=== PATIENT | male | born 1945 | race Caucasian/White ===

== ENCOUNTER 2017-10-11 00:31 | Emergency (ER) | payer OTHER ==
[~2017-10-11] VITALS: Ht 193 cm; Wt 141.8 kg
[~2017-10-11 00:31] MED LIST: ACET-1311 PO; ASPI81TA28 PO; ATOR-26 PO; FERR1TAB13 PO; METO25TA3 PO; MULT-506 PO; NTRGSL/4 UT; OXYC1TAB3 PO; WARF5TAB7 PO
[2017-10-11 00:35] VITALS: Ht 193 cm; Wt 141.8 kg
[2017-10-11] MEDS ORDERED: WARF-237 PO (01:12)
[2017-10-11] MEDS ORDERED: LPT/40 PO (01:12)
[2017-10-11] MEDS ORDERED: CMD10 PO (01:12)
[2017-10-11] MEDS ORDERED: CEFTRIAXONE SOD INJ 1 GM ADDVIAL IV STA (01:54)
[2017-10-11 02:15] LABS: BASO % 0.3 %; BASO ABS # 0.02 K/uL (0-0.2); EOS % 4.1 %; EOS ABS # 0.29 K/uL (0-0.5); HEMATOCRIT 41.6 % (42-52); HEMOGLOBIN 13.8 g/dL (14.0-18.0); IG# 0.02 K/uL (0.00-0.02); LYMPH % 18.4 %; LYMPH ABS # 1.29 K/uL (1.2-3.4); MEAN CELL VOLUME 95.2 fL (80-100); MEAN CORPUSCULAR HEMOGLOBIN 31.6 pg (25-34); MEAN CORPUSCULAR HGB CONC 33.2 g/dl (32-36); MEAN PLATELET VOLUME 10.9 fL (7.4-10.4); MONO % 12.3 %; MONO ABS # 0.86 K/uL (0.11-0.59); NEUT % 64.6 %; NEUT ABS # 4.52 K/uL (1.4-6.5); PLATELET COUNT 152 K/uL (130-400); RED CELL DISTRIBUTION WIDTH CV 15.8 % (11.5-14.5); RED CELL DISTRIBUTION WIDTH SD 55.1 fL (36.4-46.3)
[2017-10-11 02:33] LABS: ALBUMIN 3.2 gm/dl (3.4-5.0); CALCIUM 8.8 mg/dl (8.5-10.1); CREATININE 0.84 mg/dl (0.60-1.40); POTASSIUM 3.7 mmol/L (3.5-5.1)
[2017-10-11 02:35] LABS: TOTAL PROTEIN 7.4 gm/dl (6.4-8.2)
[2017-10-11 02:42] LABS: INR 1.6 (0.9-1.1); PTT PATIENT 33.3 SECONDS (21.0-31.0)
[2017-10-11] MEDS ORDERED: AMOX500C3 PO (03:25)
[2017-10-11 03:36] VITALS: BP 120/72; PULSE 70; TEMP 36.6; O2SAT 91
--- NOTE | 2017-10-11 22:25 | EMERGENCY ROOM VISIT NOTE ---
History First contact with patient: 01:40 Chief Complaint: NOSE BLEED (MINOR) Stated Complaint: NOSE BLEED History of Present Illness The patient is a 72 year old male who presents to the Emergency Room with complaints of bleeding from his right side nose that started earlier today. 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 He takes aspirin but not Plavix. The patient was initially seen about 14 hours ago at [facility] where a Rhino Rocket was placed in the right side nares. The patient returned home locally, and had been doing well until about an hour ago. He states that he was seated on his couch when he started having a small amount of blood come out the nose and down the back of his throat. The patient came immediately to the emergency department for evaluation. He does not have injury or trauma. No recent cold symptoms. He rates his discomfort a 2/10. Review of Systems More than 10 systems were reviewed and otherwise negative with the exception of history of present illness. Past Medical/Surgical History Medical Problems: (1) Arterial insufficiency (2) Dyslipidemia (3) Hypertension (4) Left leg pain Surgical Problems: (1) H/O heart artery stent Family History Patient reports no known family medical history. Social History Smoking Status: Never Smoker Alcohol Use: none Drug Use: none Marital Status: Occupation Status: retired Current/Historical Medications Scheduled Amoxicillin (Amoxil), 500 MG PO TID Aspirin (Aspirin Ec), 81 MG PO DAILY Atorvastatin (Lipitor), 40 MG PO DAILY Metoprolol Succ (Toprol Xl) (Toprol-Xl), 12.5 MG PO DAILY Multivitamin (Multivitamin), 1 TAB PO DAILY Nitroglycerin (Nitrostat), 0.4 MG UT PRN Warfarin Sod (Coumadin), 10 MG PO 5XWK Warfarin Sod (Coumadin), 15 MG PO 2XWK Physical Exam Vital Signs Date Time Temp Pulse Resp B/P (MAP) Pulse Ox O2 Delivery O2 Flow Rate FiO2 10/11/17 03:36 36.6 70 18 120/72 91 Room Air 10/11/17 00:35 36.5 79 18 113/76 91 Room Air Physical Exam VITALS: Vitals are noted on the nurse's note and reviewed by myself. Vital signs stable. GENERAL: Well-developed, well-nourished, white male, who is in no acute distress and resting comfortably. Patient is cooperative with the examination. NOSE: There is a well-positioned Rhino Rocket in the right nares. No active bleeding is appreciated around the Rhino Rocket or in the left side nares.. MOUTH: Mucous membranes moist. Tonsils are not enlarged. Pharynx with scant blood in the posterior pharynx. No active bleeding noted HEART: Regular rate and rhythm without murmurs gallops or rubs. LUNGS: Clear to auscultation bilaterally without wheezes, rales or rhonchi. No retractions or accessory muscle use. Medical Decision & Procedures Laboratory Results 10/11/17 02:00 Red Blood Count 4.37, Mean Corpuscular Volume 95.2, Mean Corpuscular Hemoglobin 31.6, Mean Corpuscular Hemoglobin Concent 33.2, Mean Platelet Volume 10.9, Neutrophils (%) (Auto) 64.6, Lymphocytes (%) (Auto) 18.4, Monocytes (%) (Auto) 12.3, Eosinophils (%) (Auto) 4.1, Basophils (%) (Auto) 0.3, Neutrophils # (Auto ) 4.52, Lymphocytes # (Auto) 1.29, Monocytes # (Auto) 0.86, Eosinophils # (Auto ) 0.29, Basophils # (Auto) 0.02 10/11/17 02:00 Test 10/11/17 02:00 White Blood Count 7.00 K/uL (4.8-10.8) Red Blood Count 4.37 M/uL (4.7-6.1) Hemoglobin 13.8 g/dL (14.0-18.0) Hematocrit 41.6 % (42-52) Mean Corpuscular Volume 95.2 fL (80-100) Mean Corpuscular Hemoglobin 31.6 pg (25-34) Mean Corpuscular Hemoglobin Concent 33.2 g/dl (32-36) Platelet Count 152 K/uL (130-400) Mean Platelet Volume 10.9 fL (7.4-10.4) Neutrophils (%) (Auto) 64.6 % Lymphocytes (%) (Auto) 18.4 % Monocytes (%) (Auto) 12.3 % Eosinophils (%) (Auto) 4.1 % Basophils (%) (Auto) 0.3 % Neutrophils # (Auto) 4.52 K/uL (1.4-6.5) Lymphocytes # (Auto) 1.29 K/uL (1.2-3.4) Monocytes # (Auto) 0.86 K/uL (0.11-0.59) Eosinophils # (Auto) 0.29 K/uL (0-0.5) Basophils # (Auto) 0.02 K/uL (0-0.2) RDW Standard Deviation 55.1 fL (36.4-46.3) RDW Coefficient of Variation 15.8 % (11.5-14.5) Immature Granulocyte % (Auto) 0.3 % Immature Granulocyte # (Auto) 0.02 K/uL (0.00-0.02) Prothrombin Time 16.7 SECONDS (9.0-12.0) Prothromb Time International Ratio 1.6 (0.9-1.1) Activated Partial Thromboplast Time 33.3 SECONDS (21.0-31.0) Partial Thromboplastin Ratio 1.3 Anion Gap 8.0 mmol/L (3-11) Est Creatinine Clear Calc Drug Dose 122.3 ml/min Estimated GFR () 101.4 Estimated GFR (Non- 87.5 BUN/Creatinine Ratio 15.0 (10-20) Calcium Level 8.8 mg/dl (8.5-10.1) Total Bilirubin 0.6 mg/dl (0.2-1) Aspartate Amino Transf (AST/SGOT) 21 U/L (15-37) Alanine Aminotransferase (ALT/SGPT) 31 U/L (12-78) Alkaline Phosphatase 94 U/L (45-117) Total Protein 7.4 gm/dl (6.4-8.2) Albumin 3.2 gm/dl (3.4-5.0) Globulin 4.2 gm/dl (2.5-4.0) Albumin/Globulin Ratio 0.8 (0.9-2) Medications Administered Medications (Trade) Dose Ordered Sig/Soraya Route Start Time Stop Time Status Last Admin Dose Admin Ceftriaxone Sodium (Rocephin Inj) 1 gm NOW STAT IV 10/11/17 01:54 10/11/17 01:55 DC 10/11/17 02:14 1 GM ED Course Physical exam and history were performed. Nursing notes, EMR, and Medication List were personally reviewed. Patient appears to have epistaxis that began much earlier today. He has a Rhino Rocket in place already, and evidently had a small amount of blood coming around the Rhino Rocket. This does not appear to be actively bleeding on examination. The patient is on Coumadin, and because of this I did elect to check basic labs. He does not have a significantly elevated white count. He is not grossly anemic. INR is 1.6. The patient was not given antibiotics from [place] despite being packed, and because of this he was given a dose of Rocephin. The case was discussed with my attending physician, Dr. Archer, and on reevaluation the patient continued without active bleeding. The patient is felt to be stable for discharge home. He will need a short course of prophylactic antibiotics, and was given a prescription for Amoxil. He will need to follow-up with either his primary care physician, ENT, or back in the ER in about 2 days for a recheck and for packing removal. He was asked to return sooner with any new, worsening, or concerning symptoms. This chart was completed utilizing [employer] Speech Voice Recognition Software. Grammatical errors, random word insertions, pronoun errors, and incomplete sentences are an occasional consequence of this system due to software limitations, ambient noise, and hardware issues. Any formal questions or concerns about the content, text, or information contained within the body of this dictation should be directly addressed to the provider for clarification. . Medical Decision Differential diagnosis: Etiologies such as anterior epistaxis, coagulopathy, traumatic injury, fracture , septal hematoma, posterior epistaxis as well as other pathologies were entertained. Impression Primary Impression: Epistaxis Departure Information Dispostion Home / Self-Care Condition GOOD Prescriptions Amoxicillin (AMOXIL) 500 Mg Cap 500 MG PO TID for 4 Days, #12 CAP Prov: Pasha Olvera PA-C 10/11/17 Forms HOME CARE DOCUMENTATION FORM, IMPORTANT VISIT INFORMATION Patient Instructions My [facility] Additional Instructions You were seen and evaluated today on an emergency basis only. This is not a substitute for, or an effort to provide, complete comprehensive medical care. It is not possible to recognize and treat all injuries or illnesses in a single emergency department visit. For this reason it is recommended that you followup with your primary care physician or back in the emergency department in 48-72 hours for recheck. Leave your nasal packing in place. Take amoxicillin 500 mg 3 times daily for the next 4 days. You are welcome to return to the emergency department anytime with new, worsening, or concerning symptoms.
== END 2017-10-11 03:37 | disposition home or self-care (01) ==
LOC: C.EDB 00:32 → C.EDA 03:37
DX: R04.0 Epistaxis (principal); Z79.01 Long term (current) use of anticoagulants; Z86.718 Personal history of other venous thrombosis and embolism; Z95.5 Presence of coronary angioplasty implant and graft; E78.5 Hyperlipidemia, unspecified; I10 Essential (primary) hypertension; Z79.82 Long term (current) use of aspirin; Z79.899 Other long term (current) drug therapy

== ENCOUNTER 2017-10-12 10:31 | Emergency (ER) | payer OTHER ==
[~2017-10-12] VITALS: Ht 193 cm; Wt 146.1 kg
[~2017-10-12 10:31] MED LIST changes: -ACET-1311 PO; +AMOX500C3 PO; -ATOR-26 PO; +CMD10 PO; -FERR1TAB13 PO; +LPT/40 PO; -OXYC1TAB3 PO; +WARF-237 PO; -WARF5TAB7 PO
[2017-10-12 10:33] VITALS: TEMP 36.8; Ht 193 cm; Wt 146.1 kg
--- NOTE | 2017-10-12 11:28 | EMERGENCY ROOM VISIT NOTE ---
History Report prepared by Gaudencio: Jass Leiva Under the Supervision of: Dr. Irwin Elena M.D. First contact with patient: 11:17 Chief Complaint: OTHER COMPLAINT Stated Complaint: REMOVAL OF TUBE History of Present Illness The patient is a 72 year old male who presents to the Emergency Room with complaints of intermittent, severe, nosebleeds beginning 2 days ago. The patient states he has been experiencing nose bleeds daily and was evaluated in the ED the other night. He reports he had a rapid rhino placed in his right nostril. The patient notes he was able to stop the bleeding yesterday by applying pressure. He states he is currently on Coumadin and was told to decrease his dosage. The patient reports he has a history of a blood clot one year ago and stents in his heart and aorta. He notes he has not had recent cardiac symptoms. The patient states he is currently on antibiotics. He reports he does not have an appointment with the ENT doctor. Source of History: patient Onset: 2 days ago Position: nose Symptom Intensity: severe Quality: other (bleeding) Timing: intermittent Modifying Factors (Relieving): other (applying pressure) Note: Associated symptoms: currently taking antibiotics Review of Systems See HPI for pertinent positives & negatives. A total of 10 systems reviewed and were otherwise negative. Past Medical & Surgical Medical Problems: (1) Arterial insufficiency (2) Dyslipidemia (3) Hypertension (4) Left leg pain Surgical Problems: (1) H/O heart artery stent Old medical records were reviewed. Nurse's notes were reviewed and I agree with. Family History Patient reports no known family medical history. Social History Smoking Status: Never Smoker Alcohol Use: none Drug Use: none Marital Status: Occupation Status: retired Current/Historical Medications Scheduled Amoxicillin (Amoxil), 500 MG PO TID Aspirin (Aspirin Ec), 81 MG PO DAILY Atorvastatin (Lipitor), 40 MG PO DAILY Metoprolol Succ (Toprol Xl) (Toprol-Xl), 12.5 MG PO DAILY Multivitamin (Multivitamin), 1 TAB PO DAILY Nitroglycerin (Nitrostat), 0.4 MG UT PRN Warfarin Sod (Coumadin), 10 MG PO 5XWK Warfarin Sod (Coumadin), 15 MG PO 2XWK Allergies Coded Allergies: Iodinated Diagnostic Agents (Verified Allergy, Severe, HIVES & RASH AFTER HEART CATH, 10/12/17) Physical Exam Vital Signs Date Time Temp Pulse Resp B/P (MAP) Pulse Ox O2 Delivery O2 Flow Rate FiO2 10/12/17 11:55 71 20 140/80 94 10/12/17 10:33 36.8 65 17 118/69 91 Room Air Physical Exam General: Non-ill appearing older male in no acute distress. HEENT: Normal cephalic atraumatic. Pupils are equal round and reactive to light. Extraocular movements are intact. Oropharynx is pink with moist mucous membranes with a small amount of dried blood in the posterior oropharynx. No swelling of the mouth lips or tongue. Rapid rhino in the right nostril. Neck: Supple with a midline trachea. No meningeal signs or stiffness, no JVD or bruits. No Stridor. Chest: Clear to auscultation bilaterally. No wheezes or rhonchi. No increased work of breathing. Heart: regular rate and rhythm. Abdomen: Soft nontender, nondistended without rebound guarding or rigidity. Extremities: No cyanosis clubbing or edema. No calf tenderness or assymetry Spine/Back. Non tender to palpation. No CVA tenderness Skin: Good turgor without rashes. Neurologic exam: Cranial nerves two through 12 are intact. Motor and sensation are intact and symmetrical throughout. Medical Decision & Procedures ED Course 1117: Past medical records reviewed. The patient was evaluated in room C07, and a complete history and physical examination were performed. 1143: I discussed the patient's case with Dr. Vazquez, ENT. He suggests leaving the rapid rhino in and he will evaluate the patient in his office on Saturday. 1152: Upon reevaluation, the patient has not had any nasal bleeding. I discussed the results and treatment plan with him. He verbalized agreement of the treatment plan. The patient was discharged home and will follow up with ENT. Medical Decision Differentials include, but are not limited to; nose bleed, anti-coagulation issue This patient comes in as described above. He is here to potentially have his nasal packing removed. This was placed in [place] on . He was seen here night as he had further bleeding and went home on Saturday also had more bleeding. he has had minimal to no bleeding today and at present he has none. he has a small amount dried blood in the back of his mouth. He has been afebrile and has been on antibiotics as a course of antibiotics that will last him through the weekend. He is not bleeding from anywhere else. They checked his INR on and it was 1.6. He is normotensive here. I did discuss the case with Dr. Souza, the ear, nose, and throat doctor production line mechanic. He recommends keeping the packing in over the weekend and he can see him in the office on Saturday morning, the patient will call at 8 AM. The patient does live over an hour from the hospital. I was concerned with taking the packing out with his distance that he lives away additionally, he had some bleeding yesterday as well and the fact that he does have anticoagulation use. He is on antibiotics and will continue do this he should return to ER if he has further bleeding or problems over the weekend and return sooner if any new problems or concerns. Medication Reconcilliation Current Medication List: was personally reviewed by me Blood Pressure Screening Patient's blood pressure: Normal blood pressure Blood pressure disposition: Did not require urgent referral Consults Time Called: 1124 Consulting Physician: Dr. Vazquez, ENT Returned Call: 1143 I discussed the patient's case with Dr. Vazquez, ENT. He suggests leaving the rapid rhino in and he will evaluate the patient in his office on Saturday. Impression Primary Impression: Anterior epistaxis Scribe Attestation The scribe's documentation has been prepared under my direction and personally reviewed by me in its entirety. I confirm that the note above accurately reflects all work, treatment, procedures, and medical decision making performed by me. Departure Information Dispostion Home / Self-Care Referrals No Doctor, Assigned (PCP) Forms HOME CARE DOCUMENTATION FORM, IMPORTANT VISIT INFORMATION, WORK / SCHOOL INSTRUCTIONS Patient Instructions My [facility] Additional Instructions Rest. Follow-up with Dr. Vazquez (it operations specialist)on Saturday, call his office at 8 AM Continue antibiotics. Return if: worsening symptoms, further bleeding, any new problems or concerns
[2017-10-12 11:55] VITALS: BP 140/80; PULSE 71; O2SAT 94
== END 2017-10-12 11:56 | disposition home or self-care (01) ==
LOC: C.EDB 10:32 → C.EDC 11:56
DX: R04.0 Epistaxis (principal); Z79.01 Long term (current) use of anticoagulants; Z86.718 Personal history of other venous thrombosis and embolism; Z95.5 Presence of coronary angioplasty implant and graft; E78.5 Hyperlipidemia, unspecified; I10 Essential (primary) hypertension; Z79.82 Long term (current) use of aspirin; Z79.899 Other long term (current) drug therapy